=== PATIENT | male | born 1940 | race Asian ===

== ENCOUNTER → 2017-05-20 | Outpatient (CLI) | payer MEDICARE, OTHER ==
[~2017-05-20] MED LIST: ALBU8.5H3; AMLO-147; APRACLONIDINE 1% 0.1 ML OPH ONE; ATEN-122; COZAR; FLUT1DIS23; HYDR25TA6; METO-448 PO; OPHTHALMIC IRRIG SOLUTION 120 ML ONE; PHENYLephrine 10% 5 ML OPH ONE; PROPARACAINE 0.5% 15 ML OPH ONE; SIMV10TA; SIMV40TA3 PO; TROPICAMIDE 1% 3 ML OPH ONE
== END | disposition home or self-care (01) ==
LOC: RAD 09:37
PROVIDERS: ATTEND Ophthalmology
DX: H26.9 Unspecified cataract (principal)
CPT/HCPCS: 66821

== ENCOUNTER → 2018-04-02 | Outpatient (CLI) | END | disposition home or self-care (01) ==

== ENCOUNTER 2018-11-05 10:09 | Emergency (ER) | payer MEDICARE, OTHER ==
[~2018-11-05] VITALS: Ht 162.6 cm; Wt 63.6 kg
[~2018-11-05 10:09] MED LIST changes: -ALBU8.5H3; +ALBU8.5H8; -APRACLONIDINE 1% 0.1 ML OPH ONE; -OPHTHALMIC IRRIG SOLUTION 120 ML ONE; -PHENYLephrine 10% 5 ML OPH ONE; -PROPARACAINE 0.5% 15 ML OPH ONE; -TROPICAMIDE 1% 3 ML OPH ONE
[2018-11-05 10:15] VITALS: BP 151/73; PULSE 81; RESP 18; Ht 162.6 cm; Wt 63.6 kg
[2018-11-05] MEDS ORDERED: ALBUTEROL 0.083% (NEB) 2.5 MG/3 ML AMP HHN STA (11:32)
[2018-11-05] MEDS ORDERED: predniSONE 20 MG TAB PO ONE (12:00)
[2018-11-05] MEDS ORDERED: CEFTRIAXONE 1 GM INJ IM ONE (13:00)
[2018-11-05] MEDS ORDERED: LEVO500T48 PO (13:17)
[2018-11-05] MEDS ORDERED: PRED20TA PO (13:17)
[2018-11-05] MEDS ORDERED: ACET500C5 PO (13:17)
--- NOTE | 2018-11-05 13:21 | ERD ---
ER Documentation Chief Complaint Chief Complaint pt bib family with c/o fever and aches and pain, dysuria since thursday HPI 78-year-old male presents with history of fevers, body aches and cough for last week. He also has sensation of dysuria. He has a history of COPD. He is using his inhalers. ROS All systems reviewed and are negative except as per history of present illness. Medications Home Meds Active Scripts Acetaminophen* (Tylophen*) 500 Mg Capsule, 1 CAP PO Q6H PRN for PAIN AND OR ELEVATED TEMP, #15 CAP Prov:JORDAN DUNN MD 11/05/18 Levofloxacin* (Levaquin*) 500 Mg Tablet, 500 MG PO DAILY for 7 Days, #7 TAB Prov:JORDAN DUNN MD 11/05/18 Prednisone* (Prednisone*) 20 Mg Tab, 40 MG PO DAILY for 4 Days, TAB Start November 06, 2018 Prov:JORDAN DUNN MD 11/05/18 Reported Medications [Cozar] No Conflict Check, 100 DAILY 06/24/11 Simvastatin (Simvastatin) 40 Mg Tablet, 40 MG PO HS 06/24/11 Metoprolol Tartrate* (Lopressor*) 25 Mg Tab, 25 MG PO BID 06/24/11 Hydrochlorothiazide (Hydrochlorothiazide) 25 Mg Tablet 07/09/10 Simvastatin* (Zocor*) 10 Mg Tablet 07/09/10 Fluticasone/Salmeterol (Advair 250-50 Diskus) 1 Disk W/Dev Disk.w.dev 07/09/10 Albuterol Sulfate* (Proair HFA*) 8.5 Gm Hfa.aer.ad 07/09/10 Amlodipine Besylate* (Amlodipine Besylate*) 10 Mg Tablet 07/09/10 Atenolol* (Tenormin*) 50 Mg Tablet 07/09/10 Allergies Allergies: Coded Allergies: No Known Drug Allergies (Verified Allergy, Mild, 06/24/11) PMhx/Soc History of Surgery: Yes (CATARACT REMOVAL RIGHT EYE) Anesthesia Reaction: No Hx Neurological Disorder: No Hx Respiratory Disorders: Yes (ASTHMA) Hx Cardiac Disorders: Yes (HTN) Hx Psychiatric Problems: No Hx Miscellaneous Medical Probl: Yes (PRE DM) Hx Alcohol Use: No Hx Substance Use: No Hx Tobacco Use: No Smoking Status: Former smoker FmHx Family History: No diabetes, No coronary disease, No other Physical Exam Vitals Vital Signs Date Temp Pulse Resp B/P (MAP) Pulse Ox O2 O2 Flow FiO2 Time Delivery Rate 11/05/18 78 18 96 21 12:02 11/05/18 99.9 81 18 151/73 95 10:15 (99) Physical Exam Const: No acute distress. Well-appearing. Speaking complete sentences. Head: Atraumatic Eyes: Normal Conjunctiva ENT: Normal External Ears, Nose and Mouth. Neck: Full range of motion. No meningismus. Resp: Clear to auscultation bilaterally. Decreased air movement although no rales or retractions appreciated. Possible minimal increased expiratory phase. Cardio: Regular rate and rhythm, no murmurs Abd: Soft, non tender, non distended. Normal bowel sounds Skin: No petechiae or rashes Back: No midline or flank tenderness Ext: No cyanosis, or edema Neur: Awake and alert Psych: Normal Mood and Affect Results 24 hrs Laboratory Tests Test 11/05/18 12:08 Urine Color YELLOW Urine Clarity CLEAR Urine pH 6.0 Urine Specific [place] 1.017 Urine Ketones NEGATIVE mg/dL Urine Nitrite NEGATIVE mg/dL Urine Bilirubin NEGATIVE mg/dL Urine Urobilinogen NEGATIVE mg/dL Urine Leukocyte Esterase NEGATIVE Adebayo/ul Urine Microscopic RBC 5 /HPF Urine Microscopic WBC 0 /HPF Urine Hemoglobin 1+ mg/dL Urine Glucose NEGATIVE mg/dL Urine Total Protein 1+ mg/dl Current Medications Medications Dose Sig/Sandhya Start Time Status Last (Trade) Ordered Route PRN Stop Time Admin Dose Reason Admin Prednisone 40 mg ONCE ONCE 11/05/18 DC 11/05/18 (Prednisone) PO 12:00 11:53 11/05/18 12:01 Albuterol 5 mg ONCE STAT 11/05/18 DC 11/05/18 (Proventil HHN 11:32 12:02 0.083% (Neb)) 11/05/18 11:34 Ceftriaxone 1 gm ONCE ONCE 11/05/18 DC 11/05/18 Sodium IM 13:00 12:59 (Rocephin) 11/05/18 13:01 Procedures/MDM Chest X-ray 1V Interpreted by me: Soft Tissue: No acute abnormalities Bones: No acute abnormalities Mediastinum/Cardiac Silhouette/Lungs: Lower lobe infiltrate. Impression-right lower lobe infiltrate concerning for pneumonia.. Was given prednisone 40 mg by mouth, albuterol treatment a clear lungs on serial exam without signs of hypoxemia, respiratory distress. Patient is a low curb 65 score. Patient was given Rocephin 1 g IM for findings of pneumonia. Patient was treated with Levaquin, continuation of Ventolin, primary care follow-up and return precautions. He should return for chest pain, persistent fevers, vomiting, shortness of breath, as directed. Patient was given a short course of prednisone 40 mg a day starting tomorrow. He is advised to repeat x-ray in 2-3 weeks after treatment to evaluate for resolution. The patient was stable with no new complaints during the ER course. Clinically, there is no current evidence to suggest meningitis, sepsis, acute abdomen, pneumonia, stroke, acute coronary syndrome, pulmonary embolism, aortic dissection or any other emergent condition appearing to require further evaluation or hospitalization. Patient counseled regarding my diagnostic impression and care plan. Prior to discharge all questions answered. Pt agrees with treatment plan and understands strict return precautions. Pt is instructed to follow up with primary care provider within 24-48 hours. Precautionary instructions provided including instructions to return to the ER if not improving or for any worsening or changing symptoms or concerns. Departure Diagnosis: Primary Impression: Pneumonia Pneumonia type: due to unspecified organism Laterality: right Lung location: lower lobe of lung Qualified Codes: J18.1 - Lobar pneumonia, unspecified organism Additional Impression: Upper respiratory infection URI type: unspecified URI Qualified Codes: J06.9 - Acute upper respiratory infection, unspecified Condition: Stable Patient Instructions: Copd Flare, Pneumonia (Adult) Additional Instructions: Recheck for worsening symptoms-persistent fevers, vomiting, chest pain with primary care doctor. Continue inhalers at home. Repeat x-ray approximately 2-3 weeks after treatment. JORDAN DUNN MD Nov 05, 2018 13:21
== END 2018-11-05 13:39 | disposition home or self-care (01) ==
LOC: FTE 10:09
DX: J18.1 Lobar pneumonia, unspecified organism (principal); I10 Essential (primary) hypertension; J45.909 Unspecified asthma, uncomplicated; E11.9 Type 2 diabetes mellitus without complications; J06.9 Acute upper respiratory infection, unspecified; R05 Cough; Z87.891 Personal history of nicotine dependence
CPT/HCPCS: 71045; 81001; 94664; 96372; 99284; J0696; J7512